=== PATIENT | female | born 1980 | race Caucasian/White ===

== ENCOUNTER → 2019-08-17 | Outpatient (CLI) | payer OTHER ==
--- NOTE | 2019-08-17 14:39 | REP ---
RIGHT FOOT SERIES: Four views. HISTORY: Injury. FINDINGS: Four views of the right foot demonstrate overall normal mineralization. No fracture or subluxation is seen. Bones, joints, and soft tissues are unremarkable. IMPRESSION: Negative radiographs of the right foot. Electronically Signed by Otf Short MD 08/17/2019 05:44 P
--- NOTE | 2019-08-17 14:40 | REP ---
RIGHT ANKLE SERIES: Four views. HISTORY: Injury. FINDINGS: Four views of the right ankle demonstrate an intact ankle mortise. Soft tissues are unremarkable. No fractures seen. IMPRESSION: No fracture noted. Electronically Signed by Otf Short MD 08/17/2019 05:44 P
== END ==
LOC: M LRY 13:37
PROVIDERS: ATTEND Nurse Practitioner Family
DX: S99.921A Unspecified injury of right foot, initial encounter (principal); S99.911A Unspecified injury of right ankle, initial encounter; X58.XXXA Exposure to other specified factors, initial encounter; Y92.9 Unspecified place or not applicable